=== PATIENT | male | born 1970 | race Caucasian/White ===

== ENCOUNTER 2018-10-28 10:07 | Emergency (ER) | payer SELFPAY ==
[~2018-10-28] VITALS: Ht 172.7 cm; Wt 79.4 kg
[2018-10-28 10:39] VITALS: BP 131/78
--- NOTE | 2018-10-28 10:40 | NUR ---
BIB SELF. PATIENT PRESENTS TO ED WITH TOOTH PAIN AND LUMP TO FRONT ROOF OF THE MOUTH X 3 DAYS. PT STATES 6/10 PAIN.PATIENT POSITIONED FOR COMFORT; HOB ELEVATED; BEDRAILS UP X2; BED DOWN. ER MD MADE AWARE OF PT STATUS.
--- NOTE | 2018-10-28 10:50 | NUR ---
ER AT BEDSIDE FOR PT EVALUATION
--- NOTE | 2018-10-28 11:38 | NUR ---
Patient discharged with v/s stable. Written and verbal after care instructions given and explained. Patient alert, oriented and verbalized understanding of instructions. Ambulatory with steady gait. All questions addressed prior to discharge. ID band removed. Patient advised to follow up with PMD. Rx of PENICILLIN AND IBUPROFEN given. Patient educated on indication of medication including possible reaction and side effects. Opportunity to ask questions provided and answered.
[2018-10-28 11:44] VITALS: BP 131/78
== END 2018-10-28 11:38 | disposition home or self-care (01) ==
LOC: MED 10:07
DX: K04.7 Periapical abscess without sinus (principal)
CPT/HCPCS: 99283